=== PATIENT | female | born 1995 | race Caucasian/White ===

== ENCOUNTER 2018-11-04 18:17 | Emergency (ER) | payer MEDICAID ==
[~2018-11-04] VITALS: Ht 154.9 cm; Wt 74.8 kg
[2018-11-04 18:35] VITALS: BP 134/90
[2018-11-04] MEDS ORDERED: ALBUTEROL SULFATE/IPRATROPIU 3 ML SOL IH ONE (18:55)
[2018-11-04 21:10] VITALS: BP 128/88
== END 2018-11-04 21:10 | disposition home or self-care (01) ==
LOC: MED 18:17
DX: J40 Bronchitis, not specified as acute or chronic (principal)
CPT/HCPCS: 71046; 99283; J7620